=== PATIENT | male | born 1960 | race Caucasian/White ===

== ENCOUNTER → 2019-01-15 13:41 | Outpatient (CLI) | payer OTHER, SELFPAY ==
[2019-01-15 14:58] LABS: Absolute Lymphocyte Count 2.34 X10^3/ul (0.83-4.51); Absolute Neutrophil Count 5.3 X10^3/uL (2.0-7.7); Basophil# 0.07 X10^3/uL; Basophil% 0.8 % (0-1); Eosinophils% 2.3 % (0-5); Hematocrit 46.2 % (40-54); Lymphocyte # 2.34 X10^3/ul (4.0); Lymphocyte % 26.6 % (19-41); Mean Corp Hgb Conc 34.6 g/gl (32-36); Mean Corpuscular Hgb 31.4 pg (27.0-32.0); Mean Corpuscular Volume 90.8 fL (80-94); Mean Platelet Vol. 11.7 fl (6.2-12.0); Monocyte# 0.89 X10^3/uL; Monocyte% 10.1 % (0-10); Neutrophil # 5.28 X10^3/uL (2.7-7.7); Neutrophil % 60.1 % (47-70); Platelet Count 189 K/mm3 (150-450); RBC Distribution Width SD 46.8 fl (35.1-43.9); Red Blood Count 5.09 M/mm3 (4.6-6.2); White Blood Count 8.8 K/mm3 (4.4-11.0)
[2019-01-15 14:59] LABS: POSITIVE COUNT NO; POSITIVE DIFFERENTIAL NO; POSITIVE MORPHOLOGY NO
[2019-01-15 15:14] LABS: ALB/GLOB Ratio 1.3 RATIO (0.9-2.4); AST(SGOT) 17 U/L (15-37); Alanine Aminotransfer ALT/SGPT 25 U/L (16-61); Albumin, Serum 3.9 g/dL (3.2-5.0); Alkaline Phosphatase 125 U/L (45-117); Anion Gap 5 (5-15); BUN 18 mg/dL (7-18); BUN/Creat Ratio 17.6 RATIO (10-20); Chloride 108 mmol/L (98-107); Creatinine, Serum 1.02 mg/dL (0.70-1.30); EST Glomerular Filtration Rate 80 mL/min (>60); Est Glom Filt Rate - Afr Amer 96 mL/min (>60); Glucose 69 mg/dL (74-106); Potassium 4.2 mmol/L (3.5-5.1); Protein, Total 6.9 g/dL (6.4-8.2); Sodium Level 141 mmol/L (136-145); Thyroid Stim Hormone (TSH) 0.84 uIU/mL (0.358-3.74)
[2019-01-17 13:23] LABS: Hep C Antibodies <0.1 s/co ratio (0.0-0.9)
== END ==
PROVIDERS: Family Provider Family Medicine Geriatric Medicine; PCP Family Medicine Geriatric Medicine; Visit Provider Family Medicine Geriatric Medicine
DX: Z00.00 Encounter for general adult medical examination without abnormal findings (principal); Z12.39 Encounter for other screening for malignant neoplasm of breast; Z13.89 Encounter for screening for other disorder
CPT/HCPCS: 36415; 80053; 84153; 84443; 85025; 86803; G0103

== ENCOUNTER → 2019-04-16 12:44 | Outpatient (CLI) | payer OTHER, SELFPAY ==
[2019-03-23 11:47] VITALS: BMI 22.1
--- NOTE | 2019-04-16 12:45 | ECHOD_ITS ---
Version 2 Reason For Study: Arrhythmia Procedure This was a 2D Doppler, Color Flow transthoracic echocardiogram. Exam performed in department. Left Ventricle Normal LV size. The estimated ejection fraction is 55 %. No evidence for diastolic dysfunction. No regional wall motion abnormalities noted. Right Ventricle ICD or pacer leads identified within the right ventricle. Normal systolic function. Atria Normal left atrium. Normal right atrium. Mitral Valve Bileaflet diffuse mitral valve thickening. Mild mitral valve prolapse. Mild (1+) eccentric mitral valve insufficiency. Tricuspid Valve Normal tricuspid valve. Mild tricuspid valve insufficiency. Pulmonary artery systolic pressure is 25 mmHg. Aortic Valve Normal aortic valve. Pulmonic Valve Normal pulmonic valve. Great Vessels Normal aortic root. The pulmonary artery is normal size. Normal inferior vena cava. Pericardium/Pleural No pericardial effusion. MMode/2D Measurements & Calculations LVIDd: 4.3 cm IVSd: 0.84 cm Ao root diam: 3.1 cm LVIDs: 3.3 cm LVPWd: 0.79 cm RVDd: 3.5 cm FS: 21.8 % LAV(MOD-bp): 37.0 ml EDV(MOD-sp4): 79.9 ml EDV(MOD-sp2): 96.8 ml LAV(MOD-bp) Indexed: 19.0 ml/m2 ESV(MOD-sp4): 41.1 ml EF(MOD-sp2): 56.0 % LAV(MOD-sp2): 34.4 ml EF(MOD-sp4): 48.6 % LAV(MOD-sp4): 40.2 ml SV(MOD-sp4): 38.8 ml SV(MOD-sp2): 54.2 ml LA A4 area: 16.1 cm2 LA dimension(2D): 2.7 cm RA A4 area: 14.6 cm2 Doppler Measurements & Calculations MV E max charanjit: 50.9 cm/sec Lat Peak E' Charanjit: 10.3 cm/sec Med Peak E' Charanjit: 9.1 cm/sec MV A max charanjit: 35.3 cm/sec E/E' lat: 4.9 E/E' med: 5.6 MV E/A: 1.4 Ao V2 max: 122.8 cm/sec LV V1 max: 112.9 cm/sec PA V2 max: 126.9 cm/sec Ao max P.0 mmHg LV V1 max P.1 mmHg TR max charanjit: 229.2 cm/sec TR max P.0 mmHg Interpretation Summary Normal LV size. The estimated ejection fraction is 55 %. No evidence for diastolic dysfunction. Bileaflet diffuse mitral valve thickening. Mild mitral valve prolapse. The global longitudinal strain = -18.3 % (normal). Ordering Physician: Destin Retana Referring Physician: Lionel Abarca Chi Performed By: Diamante Akhtar RDCS
== END ==
PROVIDERS: Family Provider Family Medicine Geriatric Medicine; PCP Family Medicine Geriatric Medicine; Referring Provider Internal Medicine Cardiovascular Disease; Visit Provider Internal Medicine Cardiovascular Disease
DX: R55 Syncope and collapse (principal); Z95.0 Presence of cardiac pacemaker
CPT/HCPCS: 93306

== ENCOUNTER → 2020-07-28 11:58 | Outpatient (CLI) | payer OTHER, SELFPAY ==
[2020-07-28 11:14] VITALS: BMI 22.9
--- NOTE | 2020-07-28 15:14 | CT_ITS ---
INDICATION: Lower back pain, s/p colonoscopy 3 days ago with polyp removal, pain since scope. Hx skin cancer, pacemaker. EXAMINATION: CT ABDOMEN AND PELVIS WITH CONTRAST - CT Abdomen And Pelvis W/ Contrast Injection CLINICAL HISTORY: 60 years Male, Lower back pain, s/p colonoscopy 3 days ago with polyp removal, pain since scope. Hx skin cancer, pacemaker. COMPARISON: None TECHNIQUE: A CT scan of the abdomen and pelvis was performed with IV contrast contrast administration. Oral contrast was also administered. Coronal and sagittal reconstruction images were reviewed. This exam was performed according to our departmental dose-optimization program, which includes automated exposure control, adjustment of the mA and/or kV according to patient size and/or use of iterative reconstruction technique. FINDINGS: The lung bases and the base of the heart are normal. The liver contains a 2 cm simple cyst in the anterior aspect of the left lobe of the liver but is otherwise normal.The spleen is normal.The adrenal glands are normal.The head, body, and tail of the pancreas are normal. The right and left kidneys were examined and appear to be normal. Both ureters appear to be normal, and no obstructive uropathy is identified. The abdominal aortal is normal along its course and distribution. No paraortic lymphadenopathy is seen. No abdominal masses or lesions are seen. The CT scan of the pelvis was then reviewed. The common iliac vessels, external iliac vessels, and common femoral vessels are normal along their course and distribution No pelvis masses or lesions are seen. The appendix is normal. No pericecal inflammatory reaction is seen. Bone scanning windows of the lumbar spine and pelvis were reviewed in the coronal and sagittal planes and appear to be normal. CT/Abdomen/Pelvis WITH Contrast IMPRESSION: Normal CT scan of the abdomen and pelvis. Electronically Signed: Ronald Calvillo, at 16:00 EST Tel , Service support ,
[2020-07-28 15:26] LABS: CREATININE FINGERSTICK 0.9 mg/dL (0.70-1.30)
[2020-07-28 15:52] LABS: Anion Gap 6 (5-15); BUN 17 mg/dL (7-18); BUN/Creat Ratio 14.8 RATIO (10-20); CRP < 2.90 mg/L (0.0-3.0); Chloride 107 mmol/L (98-107); Creatinine, Serum 1.15 mg/dL (0.70-1.30); EST Glomerular Filtration Rate 69 mL/min (>60); Est Glom Filt Rate - Afr Amer 83 mL/min (>60); Glucose 104 mg/dL (74-106); Potassium 3.6 mmol/L (3.5-5.1); Sodium Level 138 mmol/L (136-145)
[2020-07-28 15:54] LABS: Absolute Lymphocyte Count 1.97 X10^3/uL (0.83-4.51); Absolute Neutrophil Count 5.8 X10^3/uL (2.0-7.7); Basophil# 0.09 X10^3/uL; Eosinophil# 0.18 X10^3/uL; Eosinophils% 2.1 % (0-5); Hemoglobin 15.4 g/dL (13.0-16.5); Lymphocyte # 1.97 X10^3/ul (4.0); Lymphocyte % 22.5 % (19-41); Mean Corp Hgb Conc 32.8 g/dL (32-36); Mean Corpuscular Hgb 30.4 pg (27.0-32.0); Mean Corpuscular Volume 92.7 fL (80-94); Mean Platelet Vol. 11.9 fl (6.2-12.0); Monocyte# 0.67 X10^3/uL; Monocyte% 7.7 % (0-10); NRBC Flagged by Analyzer 0 % (0-5); Neutrophil # 5.81 X10^3/uL (2.7-7.7); Neutrophil % 66.5 % (47-70); Platelet Count 187 K/mm3 (150-450); RBC Distribution Width CV 13.3 % (11.6-14.6); RBC Distribution Width SD 45.6 fl (35.1-43.9); Red Blood Count 5.07 M/mm3 (4.6-6.2); White Blood Count 8.7 K/mm3 (4.4-11.0)
[2020-07-28 16:12] LABS: Erythrocyte Sedimentation Rate 6 mm/hr (0-20)
== END ==
PROVIDERS: PCP Internal Medicine; Referring Provider Internal Medicine; Visit Provider Internal Medicine
DX: M54.5 Low back pain (principal)
CPT/HCPCS: 36415; 74177; 80048; 85025; 85652; 86140; Q9967

== ENCOUNTER → 2021-04-04 08:12 | Outpatient (CLI) | payer BC, SELFPAY ==
[2021-03-31 15:57] VITALS: BMI 22.9
[2021-04-04 09:20] LABS: AST(SGOT) 16 U/L (15-37); Alanine Aminotransfer ALT/SGPT 28 U/L (16-61); Albumin, Serum 3.7 g/dL (3.2-5.0); Alkaline Phosphatase 99 U/L (45-117); Bilirubin, Direct 0.13 mg/dL (0.00-0.30); Cholesterol 179 mg/dL (200); Globulin 3.2 g/dL (2.2-4.2); High Density Lipoprotein 54 mg/dL; Protein, Total 6.9 g/dL (6.4-8.2); Triglycerides 100 mg/dL; Very Low Density Lipoprotein 20 mg/dL (5-40)
== END ==
PROVIDERS: PCP Internal Medicine; Referring Provider Nurse Practitioner Family; Visit Provider Nurse Practitioner Family
DX: E78.5 Hyperlipidemia, unspecified (principal)
CPT/HCPCS: 36415; 80061; 80076

== ENCOUNTER 2021-11-11 09:47 | Outpatient (CLI) | payer BC, SELFPAY | END 2021-11-11 23:59 | disposition home or self-care (01) | PROVIDERS: PCP Internal Medicine; Referring Provider Nurse Practitioner Family; Visit Provider Nurse Practitioner Family | DX: R05.9 Cough, unspecified (principal) | CPT/HCPCS: 87635; U0003; U0005 ==

== ENCOUNTER → 2022-06-07 | Outpatient (CLI) | payer BC, SELFPAY ==
--- NOTE | 2022-06-07 14:15 | NEURO_ITS ---
NCS and/or EMG Patient Report Ordering Doctor: Rosalind Palemr DATE OF SERVICE: 06/07/22 Indication: Bilateral hand numbness, tingling and pain (prominent in the first three fingers bilaterally). Symptoms have been present and progressive over the last year. Localized neck pain without radicular symptoms. Evaluate for entrapment neuropathy. Findings: Nerve conduction studies were performed in the right and left upper extremities. The right median motor study recording the abductor pollicis brevis showed a red uced amplitude, markedly prolonged distal latency and slowed conduction velocity. The right ulnar motor study recording the abductor digiti minimi showed a normal amplitude, normal distal latency and normal conduction velocity. No conduction block or focal slowing was present across the elbow. The right median sensory response recording digit two was absent. The right ulnar sensory response recording digit five showed a normal amplitude, latency and conduction velocity. The right radial sensory response recording over the extensor snuff box showed a normal amplitude, latency and conduction velocity. The left median motor study recording the abductor pollicis brevis showed a borderline amplitude, markedly prolonged distal latency and slowed conduction velocity. The left ulnar motor study recording the abductor digiti minimi showed a normal amplitude, normal distal latency and normal conduction velocity. Focal slowing was present across the elbow. The left median sensory response recording digit two was absent. The left ulnar sensory response recording digit five showed a normal amplitude, latency and conduction velocity. The left radial sensory response recording over the exte nsor snuff box showed a normal amplitude, latency and conduction velocity. Right median-ulnar lumbrical / interosseous motor latencies showed a markedly prolonged median latency compared to the ulnar. Left median-ulnar lumbrical / interosseous motor latencies showed a markedly prolonged median latency compared to the ulnar. Needle EMG of the left abductor brevis was performed. Insertional activity was increased, but there was no active denervation. During the procedure the patient experienced vasovagal syncope, therefore motor units could not be assessed. The EMG was truncated due to this intolerance of the study. Impression: This is an abnormal study. 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 The pathophysiology is demyelinating and axonal. These findings are compatible with the clinical diagnosis of carpal tunnel syndrome. In addition, there is evidence suggestive, but not diagnostic of, a mild left ulnar neuropathy across the left elbow. Finally, a superimposed cervical radiculopathy cannot be excluded due to the absence of the needle EMG (see above). Daniel Medeiros D.O. Multi Select Codes Neurology Neurology Interp Codes: 23682-54 Musc tst done w/nerv tst price (interp) and 35919-76 Nrv cndj test 13/> studies (interp)
== END | disposition home or self-care (01) ==
LOC: PSN 12:34
PROVIDERS: PCP Internal Medicine; Referring Provider Internal Medicine; Visit Provider Internal Medicine
DX: G56.03 Carpal tunnel syndrome, bilateral upper limbs (principal); G56.20 Lesion of ulnar nerve, unspecified upper limb
CPT/HCPCS: 95885; 95913

== ENCOUNTER → 2023-07-06 | Outpatient (CLI) | payer BC, SELFPAY ==
--- NOTE | 2023-07-06 06:40 | CT_ITS ---
STUDY: CT LEFT FOOT REASON FOR EXAM: Male, 63 years old. Left foot pain. Evaluate fracture. RADIATION DOSAGE (If Supplied By Facility): CTDIvol = ( 15.35 ) mGy, DLP = ( 361.44 ) mGycm TECHNIQUE: Thin section transaxial imaging of the left foot was obtained, with sagittal and coronal reconstructed images. Individualized dose optimization techniques were used for this CT. COMPARISON: Left foot radiographs dated 01/18/2023. FINDINGS: Normal talus, calcaneus, and tarsal bones. 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 Normal visualized tibiotalar, subtalar, talonavicular, calcaneocuboid, tarsal and tarsometatarsal articulations. Normal metatarsi. Normal metatarsophalangeal joint of the great toe. Normal tibial and fibular sesamoid bones. Normal interphalangeal joint of the great toe. Normal phalanges of the great toe. Normal second through fifth metatarsophalangeal joints. Normal interphalangeal joints and phalanges of the lesser toes. The soft tissue structures are unremarkable. There is no demonstrated acute fracture. CT/Extremity Lower without Contra IMPRESSION: No demonstrated acute fracture. Electronically Signed: Abel Pompa MD at 12:39 EDT ,
== END | disposition home or self-care (01) ==
LOC: CT 06:38
PROVIDERS: PCP Internal Medicine; Visit Provider Podiatrist
DX: S92.812D Other fracture of left foot, subsequent encounter for fracture with routine healing (principal); M79.672 Pain in left foot
CPT/HCPCS: 73700

== ENCOUNTER → 2024-06-01 | Outpatient (CLI) | payer BC, SELFPAY ==
[2024-06-01 08:27] LABS: Absolute Lymphocyte Count 2.39 X10^3/uL (0.83-4.51); Absolute Neutrophil Count 4.8 X10^3/uL (2.0-7.7); Basophil# 0.08 X10^3/uL; Basophil% 0.9 % (0-1); Eosinophil# 0.27 X10^3/uL; Eosinophils% 3.2 % (0-5); Hematocrit 49.9 % (40-54); Hemoglobin 16.9 g/dL (13.0-16.5); Lymphocyte # 2.39 X10^3/ul (0.83-4.51); Lymphocyte % 28.3 % (19-41); Mean Corp Hgb Conc 33.9 g/dL (32-36); Mean Corpuscular Volume 91.6 fL (80-94); Mean Platelet Vol. 11.7 fl (6.2-12.0); Monocyte# 0.87 X10^3/uL; Monocyte% 10.3 % (0-10); NRBC Flagged by Analyzer 0 % (0-5); Neutrophil # 4.81 X10^3/uL (2.7-7.7); Neutrophil % 57.1 % (47-70); Platelet Count 169 K/mm3 (150-450); RBC Distribution Width CV 13.9 % (11.6-14.6); RBC Distribution Width SD 46.9 fl (35.1-43.9); Red Blood Count 5.45 M/mm3 (4.6-6.2); White Blood Count 8.4 K/mm3 (4.4-11.0)
[2024-06-01 09:05] LABS: AST(SGOT) 16 U/L (15-37); Alanine Aminotransfer ALT/SGPT 21 U/L (16-61); Albumin, Serum 3.7 g/dL (3.2-5.0); Alkaline Phosphatase 111 U/L (45-117); Anion Gap 4 (5-15); BUN 13 mg/dL (7-18); BUN/Creat Ratio 11.7 RATIO (10-20); Bilirubin, Direct 0.17 mg/dL (0.00-0.30); Calcium,Total 9.2 mg/dL (8.5-10.1); Chloride 105 mmol/L (98-107); Cholesterol 198 mg/dL (200); Creatinine, Serum 1.11 mg/dL (0.70-1.30); EST Glomerular Filtration Rate 71 mL/min (>60); Est Glom Filt Rate - Afr Amer 86 mL/min (>60); Globulin 3.5 g/dL (2.2-4.2); Glucose 97 mg/dL (74-106); High Density Lipoprotein 63 mg/dL; Protein, Total 7.2 g/dL (6.4-8.2); Sodium Level 138 mmol/L (136-145); Triglycerides 107 mg/dL; Very Low Density Lipoprotein 21 mg/dL (5-40)
== END | disposition home or self-care (01) ==
LOC: LAB 07:42
PROVIDERS: PCP Internal Medicine; Referring Provider Internal Medicine Cardiovascular Disease; Visit Provider Internal Medicine Cardiovascular Disease
DX: I34.1 Nonrheumatic mitral (valve) prolapse (principal); E78.5 Hyperlipidemia, unspecified
CPT/HCPCS: 36415; 80048; 80061; 80076; 84443; 85025

== ENCOUNTER → 2024-06-05 | Outpatient (CLI) | payer BC, SELFPAY ==
--- NOTE | 2024-06-05 10:47 | ECHOD_ITS ---
Version 2 Reason For Study: MVP Procedure This was a 2D Doppler, Color Flow transthoracic echocardiogram. Exam performed in department. Left Ventricle Normal LV size. Left ventricular systolic function is lower limits of normal. The left ventricular ejection fraction is 50 %. Stage 1 diastolic dysfunction. No regional wall motion abnormalities noted. Right Ventricle Normal RV size. ICD or pacer leads identified within the right ventricle. Normal systolic function. Atria Normal left atrium. Normal right atrium. Mitral Valve Mild diffuse mitral valve thickening. Mild mitral valve prolapse. Tricuspid Valve Normal tricuspid valve. Mild (1+) tricuspid valve insufficiency. Pulmonary artery systolic pressure is 26 mmHg. Aortic Valve Trisinus/trileaflet aortic valve. Pulmonic Valve Normal pulmonic valve. Great Vessels Normal aortic root. The pulmonary artery is normal size. Normal inferior vena cava. Pericardium/Pleural No pericardial effusion. MMode/2D Measurements & Calculations LVIDd: 4.1 cm IVSd: 0.84 cm LVOT diam: 2.1 cm LVIDs: 3.1 cm LVPWd: 0.85 cm LVOT area: 3.3 cm2 RVDd: 3.8 cm FS: 25.4 % Ao root diam: 3.0 cm LAV(MOD-bp): 40.7 ml LA A4 area: 14.6 cm2 LAV(MOD-bp) Indexed: 21.6 ml/m2 LAV(MOD-sp2): 47.2 ml LAV(MOD-sp4): 35.4 ml TAPSE: 1.7 cm RA A4 area: 17.2 cm2 Time Measurements MV dec time: 0.29 sec Doppler Measurements & Calculations MV E max charanjit: 49.8 cm/sec Lat Peak E' Charanjit: 10.4 cm/sec Med Peak E' Charanjit: 9.6 cm/sec MV A max charanjit: 57.2 cm/sec E/E' lat: 4.8 E/E' med: 5.2 MV E/A: 0.87 MV V2 max: 55.9 cm/sec MV P1/2t max charanjit: 51.3 cm/sec Ao V2 max: 130.6 cm/sec MV max P.2 mmHg MV P1/2t: 101.8 msec Ao max P.8 mmHg MV V2 mean: 32.3 cm/sec MV dec slope: 147.5 cm/sec2 Ao V2 mean: 84.8 cm/sec MV mean P.48 mmHg Ao mean P.3 mmHg MV V2 VTI: 21.8 cm MVA(P1/2t): 2.2 cm2 Ao V2 VTI: 24.7 cm MVA(VTI): 3.1 cm2 AV (velocity ratio): 0.83 DANNY(I,D): 2.8 cm2 DANNY(V,D): 2.6 cm2 LV V1 max: 103.3 cm/sec SV(LVOT): 68.1 ml PA V2 max: 96.8 cm/sec LV V1 max P.3 mmHg PA max PG (full): 2.5 mmHg LV V1 mean P.0 mmHg LV V1 mean: 65.6 cm/sec LV V1 VTI: 20.5 cm TR max charanjti: 241.6 cm/sec TR max P.3 mmHg ECHO/Echo Complete Interpretation Summary Normal LV size. Left ventricular systolic function is lower limits of normal. The left ventricular ejection fraction is 50 %. Stage 1 diastolic dysfunction. Mild (1+) tricuspid valve insufficiency. Mild mitral valve prolapse. Ordering Physician: Destin Retana Referring Physician: Destin Retana Performed By: Carl Murrieta and Student
== END | disposition home or self-care (01) ==
LOC: CVS 10:47
PROVIDERS: PCP Internal Medicine; Referring Provider Internal Medicine Cardiovascular Disease; Visit Provider Internal Medicine Cardiovascular Disease
DX: I34.1 Nonrheumatic mitral (valve) prolapse (principal)
CPT/HCPCS: 93306

== ENCOUNTER → 2024-11-21 | Outpatient (CLI) | payer BC, SELFPAY ==
--- NOTE | 2024-11-21 07:01 | CT_ITS ---
PROCEDURE: LOW DOSE CT LUNG SCREENING 11/21/2024 REASON FOR EXAM: Long-term smoker. 75 pack-year history. Lung cancer screening. TECHNIQUE: Contiguous unenhanced axial CT images were obtained through the chest. Coronal and Sagittal reconstruction series were provided. One or more dose reduction techniques were used (e.g., Automated exposure control, adjustment of the mA and/or kV according to patient size, use of iterative reconstruction technique). COMPARISON: None available. RADIATION DOSE SUMMARY: DLP: 86.04 mGycm FINDINGS: Bones/soft tissues: Bones are osteopenic with degenerative changes in the spine. Moderate probable chronic height loss of T6. No displaced rib fractures. Upper abdomen: There are a few low-attenuation lesions in the left hepatic lobe, the largest measuring 3.3 cm, with internal water density, compatible with cysts. Patchy wall thickening of the stomach may be due to lack of distention versus peristalsis. Mediastinum: Evaluation of hilar/vascular/mediastinal structures is limited due to lack of intravenous contrast. Heart is not enlarged. No sizable pericardial effusion. The ascending thoracic aorta normal in caliber. 2.7 cm dilation of the descending thoracic aorta. There is streak artifact from an anterior upper left pacemaker device. No thoracic adenopathy. Minimal wall thickening of the distal esophagus may be due to mild reflux. Lungs: Central airway clear. Lungs are mildly emphysematous. No pneumothorax, focal airspace consolidation, or pleural effusion. No dominant pulmonary parenchymal nodule. Minimal patchy ground- glass density posterior inferior right lower lobe. CT/Low Dose CT Lung Screening IMPRESSION: Mild emphysema. No thoracic adenopathy or dominant pulmonary parenchymal nodul e. Recommend follow-up lung screening CT in 1 year. 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 The ascending tho racic aorta is normal in caliber. Liver cysts, the largest in the left hepatic lobe measuring 3.3 cm. Lung-RADS Category: 1. Negative. Reading Location: [facility]
[2024-11-21 08:56] LABS: Absolute Lymphocyte Count 2.57 X10^3/uL (0.83-4.51); Absolute Neutrophil Count 3.9 X10^3/uL (2.0-7.7); Basophil# 0.09 X10^3/uL; Basophil% 1.2 % (0-1); Eosinophils% 3.8 % (0-5); Hematocrit 45.2 % (40-54); Hemoglobin 15.7 g/dL (13.0-16.5); Lymphocyte # 2.57 X10^3/ul (0.83-4.51); Lymphocyte % 32.9 % (19-41); Mean Corp Hgb Conc 34.7 g/dL (32-36); Mean Corpuscular Hgb 31.5 pg (27.0-32.0); Mean Corpuscular Volume 90.8 fL (80-94); Mean Platelet Vol. 12.3 fl (6.2-12.0); Monocyte% 11.5 % (0-10); NRBC Flagged by Analyzer 0 % (0-5); Neutrophil # 3.93 X10^3/uL (2.7-7.7); Neutrophil % 50.2 % (47-70); Platelet Count 172 K/mm3 (150-450); RBC Distribution Width CV 14.6 % (11.6-14.6); RBC Distribution Width SD 48.7 fl (35.1-43.9); Red Blood Count 4.98 M/mm3 (4.6-6.2); White Blood Count 7.8 K/mm3 (4.4-11.0)
[2024-11-21 09:45] LABS: ALB/GLOB Ratio 1.8 RATIO (0.9-2.4); AST(SGOT) 20 U/L (<=37); Alanine Aminotransfer ALT/SGPT 16 U/L (<=46); Albumin, Serum 4.1 g/dL (3.4-4.8); Alkaline Phosphatase 94 U/L (40-129); Anion Gap 10 (5-15); BUN 12 mg/dL (4-19); BUN/Creat Ratio 13.1 RATIO (10-20); Calcium,Total 9.1 mg/dL (7.6-11.0); Carbon Dioxide 24.8 mmol/L (21.0-32.0); Chloride 103 mmol/L (98-108); Creatinine, Serum 0.95 mg/dL (0.70-1.20); EST Glomerular Filtration Rate 90 (>60); Globulin 2.3 g/dL (2.2-4.2); Glucose 88 mg/dL (70-99); Potassium 3.7 mmol/L (3.3-5.1); Protein, Total 6.4 g/dL (5.9-8.4); Sodium Level 138 mmol/L (133-145); Total Bilirubin 0.54 mg/dL (0.00-1.30)
[2024-11-21 10:09] LABS: PSA,Total - Annual Screen 1.73 ng/mL (0.02-4.00); Vitamin D,25 Hydroxy 34.4 ng/mL (30-100)
== END | disposition home or self-care (01) ==
LOC: CT 06:53
PROVIDERS: PCP Internal Medicine; Referring Provider Internal Medicine; Visit Provider Internal Medicine
DX: Z12.2 Encounter for screening for malignant neoplasm of respiratory organs (principal); I49.5 Sick sinus syndrome; Z87.891 Personal history of nicotine dependence; Z95.0 Presence of cardiac pacemaker; E78.5 Hyperlipidemia, unspecified; E55.9 Vitamin D deficiency, unspecified
CPT/HCPCS: 36415; 71271; 80053; 82306; 84153; 84443; 85025; G0103